=== PATIENT | male | born 1945 | race Caucasian/White ===

== ENCOUNTER 2017-12-29 10:25 | Outpatient (CLI) | payer MEDICARE | END 2017-12-29 10:26 | disposition home or self-care (01) | LOC: BICRAD 10:25 | PROVIDERS: ATTEND Internal Medicine Rheumatology | DX: M47.816 Spondylosis without myelopathy or radiculopathy, lumbar region (principal) | CPT/HCPCS: 72100 ==

== ENCOUNTER 2018-05-26 12:01 | Emergency (ER) | payer MEDICARE, BC ==
--- NOTE | 2018-05-26 13:59 | RAD ---
3 VIEW LEFT ANKLE SERIES: Date: 05/26/18 INDICATION: Fall with injury and pain. FINDINGS: There are two corticated metallic screws traversing the medial malleolus. Patient is osteopenic. Ther e is prominent arthropathy. Chronic appearing segmentation is present at the medial malleolus underly ing the above described screws. There is probable remote traumatic deformity of the distal fibula. Pr ominent vascular calcification and soft tissue calcification. IMPRESSION: 1. Chronic-appearing findings at the left ankle without definite acute process. 2. Segmentation of the medial malleolus is likely chronic given corticated margins. Correlate clinic ally. POS: [facility]
--- NOTE | 2018-05-26 14:01 | RAD ---
LEFT KNEE 4 VIEWS: Date: 05/26/18 HISTORY: 73-year-old male with history of left knee pain following an injury from a fall 1 week ago. FINDINGS: There is very severe bony demineralization. Very extensive arteriovascular calcification. There is a somewhat oblique fracture through the proximal fibula metadiaphysis. Slight foreshortening. IMPRESSION: Oblique fracture through the proximal fibula metadiaphysis with very slight foreshortening. Very alli re bony demineralization. Very severe arteriovascular calcification. POS: [facility]
--- NOTE | 2018-05-26 14:09 | RAD ---
LEFT FOOT 3 VIEWS: Date: 05/26/18 HISTORY: 73-year-old male with history of pain following a fall 1 week ago. FINDINGS: There is very severe bony demineralization. Two internal fixation screws stabilize the medial malleol us. Severe arteriovascular calcification. There is irregularity of the distal second and third metata rsals at the metatarsal head/neck junction. In addition, there is slight deformity of the proximal fi rst metatarsal and slight area of irregular trabecular change in the region of the base of the proxim al phalanx of the great toe. Because of the very severe bony demineralization, it is difficult to det ermine whether these are acute or old. No darren overt displaced acute fracture. IMPRESSION: Very markedly severe bony demineralization with some generalized soft tissue swelling, as well as mariaelena y severe arteriovascular calcification. Slight deformity of the distal second and third metatarsals, base of the medial aspect of the first proximal phalanx, and also the base of the first metatarsal. T hese areas of deformity are indeterminate as far as age. Clinical correlation in regard to any point tenderness at these regions is suggested. POS: [facility]
[2018-05-26] MEDS ORDERED: Acetaminophen 325 MG TAB ONE ×2 (14:17)
--- NOTE | 2018-05-26 14:35 | CT ---
BRAIN CT WITHOUT IV CONTRAST: Date: 05/26/18 HISTORY: 73-year-old male with history of head injury, falling 1 week ago. COMPARISON: 10/26/16. FINDINGS: Atrophy and chronic white matter ischemic changes with asymmetry of the size of the lateral ventricle s, with the right lateral ventricle being much larger than the left, but stable from prior study. Sin us mucosal changes The mastoids are clear. IMPRESSION: Atrophy and chronic white matter ischemic changes. Asymmetric lateral ventricles with the right later al ventricle being much more dilated than the left, but this is stable from prior exam. No mass or bl eed. Mild sinus mucosal disease. POS: [facility]
== END 2018-05-26 14:29 | disposition home or self-care (01) ==
LOC: SCSER 12:01
DX: S82.832A Other fracture of upper and lower end of left fibula, initial encounter for closed fracture (principal); S92.312A Displaced fracture of first metatarsal bone, left foot, initial encounter for closed fracture; I10 Essential (primary) hypertension; I48.91 Unspecified atrial fibrillation; E03.9 Hypothyroidism, unspecified; F17.200 Nicotine dependence, unspecified, uncomplicated; N40.0 Benign prostatic hyperplasia without lower urinary tract symptoms; W19.XXXA Unspecified fall, initial encounter
CPT/HCPCS: 29515; 70450

== ENCOUNTER 2019-01-21 14:52 | Inpatient (IN) | payer MEDICARE, BC ==
--- NOTE | 2019-01-21 15:30 | RAD ---
XR Ankle Lt 3 View STANDARD History: Pain Comparison: Radiograph 2018 Findings: There are lucencies around the 2 medial malleolar screws. Old distal fibular fracture. Late ral subluxation of the talus. All costochondral defect of the talar head. Bones are osteopenic. There is sheetlike ossification along the anterolateral musculature. Severe vascular calcifications. Impression: Severe degenerative changes. Evidence of prior soft tissue and muscle injury.
[2019-01-21] MEDS ORDERED: HYDROcodone/Acetaminophen 5/325 mg Tablet ONE (15:37)
--- NOTE | 2019-01-21 15:42 | RAD ---
RIGHT HUMERUS 2 VIEWS: HISTORY: Trauma with injury and pain. FINDINGS: There is a fracture involving the proximal humerus through the surgical neck with mild displacement. Degenerative changes at the glenohumeral joint. There is mild widening of the AC joint. IMPRESSION: Mild displaced fracture proximal right humerus. Question mild widening of the acromioclavicular join t. POS: [facility]
--- NOTE | 2019-01-21 15:43 | RAD ---
RIGHT SHOULDER 3 VIEWS: HISTORY: Trauma. FINDINGS: Minimally comminuted mildly displaced fracture involving the neck of the proximal right humerus. The re is widening of the AC joint measured at approximately 14 mm. Alignment is preserved. IMPRESSION: Fracture proximal humerus. Widening of the acromioclavicular joint. POS: [facility]
[2019-01-22] MEDS ORDERED: Acetaminophen 325 MG TAB PO PRN ×2 (00:08→09:38)
[2019-01-22] MEDS ORDERED: Ondansetron ODT 4 MG TAB SL PRN (00:08)
[2019-01-22] MEDS ORDERED: Ondansetron PF 4 MG/2 ML Vial IVP PRN (00:08)
[2019-01-22] MEDS ORDERED: Morphine 4 MG/ML VIAL SLOW IVP PRN (00:08)
[2019-01-22 00:50] VITALS: BMI 25.9
[2019-01-22] MEDS ORDERED: Bisacodyl 5 MG TAB PO PRN (09:38)
[2019-01-22] MEDS ORDERED: Non-Formulary Item 1 EACH (Ibandronate Sodium [Boniva] 150 MG) PO SCH (09:45)
[2019-01-22] MEDS ORDERED: Methotrexate Sodium 2.5 MG TAB PO SCH (09:45)
--- NOTE | 2019-01-22 10:30 | CT ---
CT BRAIN NONCONTRAST: DATE: 01/22/2019. TIME: 10:10 a.m. HISTORY: A 73-year-old male status post acute head trauma from fall yesterday. COMPARISON: 05/26/2018. FINDINGS: The entire right lateral ventricle is significantly more dilated than the normal-sized left lateral v entricle. This is unchanged dating back to 07/01/2012. 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 This is unchanged since 2011. There are moderate chronic ischemic white matter changes. No mass effect, extraaxial fluid collectio n, acute calvarial fracture, acute intraaxial hemorrhage, or acute extraaxial hemorrhage. No interva l change overall. IMPRESSION: 1. No acute intracranial findings. 2. Chronically asymmetrically dilated right lateral ventricle. 3. Age-related involutional changes and chronic ischemic white matter changes. ONEAL Vincent POS: [facility]
[2019-01-22] MEDS: Cyanocobalamin (Vitamin B-12) 1,000 MCG TAB PO SCH (11:20)
[2019-01-22] MEDS: Folic Acid 1 MG TAB PO SCH (11:21)
--- NOTE | 2019-01-22 16:09 | PDOC.PALCO ---
Palliative Care Consult - Consult Details Requesting Physician: Hospitalist Reason for Consult: goals of care - Pertinent HPI 73 year old male s/p fall 01/20 requiring transport to ER for evaluation. Fx to right humerus, admitted and awaiting results of head CT. Patient received in his room, awake alert and oriented. Right arm in sling, bruising to right shoulder and ear. Palliative Care RN also present for discussion in relation to patients goals of care, JACOB Colon arrived at end of visit. - Pertinent PMH History of RA, Cardiovascular disease including atrial fib, murmur, hypertension , liver disease. - Social History Smoking Status: Never smoker Smoking: no tobacco exposure Alcohol Use: occasional - Medications MAR Reviewed: Yes - Allergies Allergies/Adverse Reactions: Allergies Allergy/AdvReac Type Severity Reaction Status Date / Time No Known Allergies Allergy Verified 06/02/15 09:51 - Subjective S/P fall 01/20. Patient states increase in weakness secondary to decrease in leg strength. Increase in use of rolling walker. States pain is a 3/10 currently, managed with norco and no constipation as a side effect. - Objective Vital Signs: Vital Signs - Most Recent Temp Pulse Resp BP Pulse Ox 98.2 F 75 16 137/68 100 01/22/19 15:33 01/22/19 15:33 01/22/19 15:33 01/22/19 15:33 01/22/19 15:33 Palliative Performance Scale: 70 (Patient states "Isaiah" has POA, Palliative Care to follow up) - Physical Exam Constitutional: NAD Deviation from normal: Pallor HEENT: PERRLA Respiratory: no wheezing Deviation from normal: Appears to become slightly short of breath with conversation Cardiovascular: irregular Deviation from normal: murmur, radial pulses present, diminished pedal pulses Gastrointestinal: soft, non-tender, no distention, positive bowel sounds Deviation from normal: limited mobility right arm Psychiatric: normal affect, normal mood Skin: normal turgor Deviation from normal: cap refill > 3 sec lower extremities - Plan/Recommendations Plan: Patient currently a full code, in visiting with patient he states he does not "want everything done" and that he does not wish to be resuscitated. Patient states this is in his paper work as well as the documentation for his two friends to make decisions on his behalf. Patients friend Isaiah to locate information and fax or bring in to [facility] RN provided card with fax number. Patient agreeable to transfer to rehab then hopes to return to his primary residence. * Palliative Care Team to follow up to clarify DNR status 01/23 * Continue to manage pain to transition patient to rehab for mobility and strength * Obtain Advance directives [45] minutes spent on this encounter with >50% of the time in counseling and coordination of care.0 Thank you for this very appropriate consult.
[2019-01-22] MEDS: Alfuzosin 10 MG TABDR...ER PO SCH (16:15)
--- NOTE | 2019-01-22 16:29 | HP ---
PRIMARY CARE PROVIDER: Clinton Jane MD CHIEF COMPLAINT: Fall. HISTORY OF PRESENT ILLNESS: Mr. Bocanegra is a pleasant 73-year-old gentleman, who was seen at [facility] on January 22, 2019. He lives at [facility]. He uses a walker. He was sitting in his chair yesterday afternoon when there was a knock on the door. He tried to transfer from the chair to the walker. The walker got tipped and he fell on his right shoulder. He denies any loss of consciousness. He does report hitting the right side of his head on the carpet. He reports pain in his right shoulder following the fall. He describes it as dull, 3/10 with movement, nonradiating, worse with movement, not accompanied by chest pain, nausea, or vomiting. He presented to the emergency room. He was found to have a right humeral fracture. Attempts were made to discharge him to rehab. The patient was not accepted for rehab. He was referred to Hospitalist Service for admission. REVIEW OF SYSTEMS: All other systems reviewed and found to be negative. PAST MEDICAL HISTORY: Benign prostate hypertrophy; rheumatoid arthritis, followed by Dr. Faye; chronic atrial fibrillation, followed by Dr. Zavala; hypertension, and hypothyroidism. PAST SURGICAL HISTORY: Left ankle surgery, umbilical hernia repair, intraocular lens implantation. SOCIAL HISTORY: No history of tobacco use or recreational drug use. The patient reports occasional alcohol use. FAMILY HISTORY: Significant for deep vein thrombosis in his mother and multiple myeloma in his father. CODE STATUS: I discussed his code status. He is DNAR. ALLERGIES: NO KNOWN DRUG ALLERGIES. CURRENT MEDICATIONS: 1. Alfuzosin 10 mg every evening. 2. Apixaban 2.5 mg 2 times a day. 3. Vitamin D 2000 units daily. 4. Cholestyramine 4 g daily. 5. Vitamin B12 1000 mcg daily. 6. Folic acid 1 mg daily. 7. Boniva 150 mg every month. 8. Synthroid 100 mcg daily. 9. Methotrexate 20 mg every week. 10. Toprol-XL 50 mg daily. PHYSICAL EXAMINATION: GENERAL: On examination, Mr. Bocanegra is awake and alert, not in acute distress. VITAL SIGNS: Blood pressure is 136/68, pulse 90, respiratory rate 17, and oxygen saturation 97% on room air. He is afebrile. EYES: No scleral icterus, no conjunctival pallor. ENT: Moist mucosal membranes. No oropharyngeal erythema or exudates. NECK: Supple, nontender, trachea is midline. RESPIRATORY: Accessory muscles of breathing are not active. Chest wall movements are symmetric bilaterally. Lungs are clear to auscultation, without wheeze, rhonchi, or crepitations. CARDIOVASCULAR: S1 and S2 are heard, regular. Peripheral pulses palpable. No carotid bruit. No pericardial rub. ABDOMEN: Soft, nontender, bowel sounds are heard. MUSCULOSKELETAL: Right upper extremity in sling. Power is 5/5 in the other three extremities. SKIN: Bruise over the right pinna. Bruise over the right shoulder. LYMPHATIC: No cervical lymphadenopathy. PSYCHIATRIC: Normal mood, normal affect, the patient is oriented to person, place, and time. LABORATORY DATA: Mr. Bocanegra' labs and investigations were reviewed. X-ray of the right shoulder showed fracture of the proximal humerus and widening of the acromioclavicular joint. X-ray of the right ankle showed severe degenerative changes and evidence of prior soft tissue and muscle injury. X-ray of the right humerus showed mild displaced fracture of the proximal right humerus. Noncontrast CT scan of the brain did not show any intracranial bleed. He had chronically asymmetrically dilated right lateral ventricle. He has not had any blood work done at this point in time. ASSESSMENT AND PLAN: Mr. Bocanegra is a pleasant 73-year-old gentleman, who was seen at [facility] on January 22, 2019. His problem list includes: 1. Right humeral fracture: Mr. Bocanegra has right humeral fracture following a fall. He will be admitted to the hospital for further management. Orthopedic Surgery Service will be consulted. PT and OT services will also be consulted to determine if the patient can safely return to his current living arrangements. 2. Chronic atrial fibrillation: This appears to be stable, we will stop Eliquis for today to make sure he is not having any bleeding. We will restart Eliquis if hemoglobin is stable. 3. Benign prostate hypertrophy: Stable, continue alfuzosin. 4. Hypothyroidism: Continue Synthroid. 5. Rheumatoid arthritis: Continue methotrexate. Many thanks for allowing me to participate in your patient's care. Please feel free to contact me with any questions or concerns. LEVEL OF RISK: Moderate. LEVEL OF COMPLEXITY: Moderate. Job ID: [id number]
[2019-01-22 16:33] LABS: #Eosinphils 0.1 thou/uL (0.0-0.7); #Lymphocytes 0.7 thou/uL (1.20-3.40); #Monocytes 0.9 thou/uL (0.11-0.59); #Neutrophils 5.6 thou/uL (1.40-6.50); %Eosinophils 1.5 % (0.0-10.0); %Lymphocytes 8.9 % (21.0-51.0); %Monocytes 12.7 % (0.0-10.0); %Neutrophils 76.8 % (42.0-75.0); Hemoglobin 10.6 g/dL (14.0-18.0); Mean Corpuscular HGB CONC 32.6 g/dL (32.0-36.0); Mean Corpuscular Hemoglobin 33.4 pg (27.0-31.0); Mean Platelet Volume 8.4 fL (7.4-10.4); Platelet Count 146 thou/uL (130-400); RBC Distribution Width 19.2 % (11.5-14.5); Red Blood Cell (RBC) Count 3.18 mill/uL (4.70-6.10); White Blood Cell (WBC) Count 7.3 thou/uL (4.8-10.8)
--- NOTE | 2019-01-22 16:50 | CON ---
DATE OF CONSULTATION: 01/22/2019 CONSULTING PHYSICIAN: Eliceo Child MD. REASON FOR CONSULTATION: Right proximal humerus fracture, status post fall. HISTORY OF PRESENT ILLNESS: This is a 73-year-old male with a past medical history significant for rheumatoid arthritis, who presented to our emergency department yesterday after he fell while transferring from his chair to his walker. He states that he heard someone at the door and lost his balance, falling backwards onto his right shoulder. He also states that he did strike his head. Denied loss of consciousness. He has been admitted for further evaluation and followup CT of the head. He has been admitted to the Medicine Service at this time. Upon further workup, the patient was found to have a right proximal humerus fracture. We have been consulted for this reason. Currently at bedside, the patient states he has had a 20-year history of rheumatoid arthritis and is somewhat debilitated secondary to this. He mainly ambulates with an industrial-size rolling walker, which has a seat as well as a platform walker. He also utilizes a chair to get around. He states that he is right-hand dominant. He denies any numbness or tingling to the right upper extremity. Denies any other pain to any of his other extremities. PAST MEDICAL HISTORY: Significant for BPH, rheumatoid arthritis, alcohol liver disease, chronic atrial fibrillation, hypertension, and hypothyroidism. PAST SURGICAL HISTORY: Significant for left ankle surgery, umbilical hernia surgery, and intra-ocular lens. SOCIAL HISTORY: Denies any alcohol use. Denies illicit drug use. Currently, uses chewing tobacco. The patient states he lives at the [place] at [facility]. REVIEW OF SYSTEMS: A 10-point review of systems conducted and otherwise negative, except for stated above. PHYSICAL EXAMINATION: VITAL SIGNS: Show temperature 98.2, pulse is 75, respiratory rate of 16, O2 saturation of 100% on room air, and blood pressure of 137/68. GENERAL: The patient is awake and alert. He is in no apparent distress. He is pleasant and cooperative with exam today. HEENT: Head is normocephalic, atraumatic. NECK: Supple. Trachea midline. RESPIRATIONS: Breathing is nonlabored. EXTREMITIES: The right upper extremity was evaluated. It was noted to be in a sling. There is soft tissue swelling noted at the shoulder as well as some ecchymosis in the anterior shoulder region. This is globally tender to palpation. No significant tenderness to palpation over the clavicle or the AC joint. The patient is able to flex and extend slightly at the elbow while in the sling. He is also able to flex and extend at the wrist and move all digits. Distal neurovascular status is intact. Rheumatoid changes are noted to his hands. Remainder of extremities were evaluated, and no other acute injuries are noted. RADIOGRAPHIC DATA: Radiographic findings reviewed by myself as well as with Dr. Child show evidence of a proximal humerus transverse fracture. This appears to be a 2- or 3-part fracture. This was visualized on the shoulder films as well as the humerus films. This is minimally displaced and overall very well aligned. ASSESSMENT: Right proximal humerus fracture, status post fall. PLAN: At this time, the patient is being appropriately managed conservatively in a sling. No surgical intervention is warranted at this time. Sling for comfort and nonweightbearing preferably. The patient states he is going to rehab. We would like to see him in our office in 2 to 3 weeks for followup evaluation with repeat x-rays. This was discussed with the patient today. He verbalizes and understands the plan of care. Job ID: [id number]
[2019-01-22 16:51] LABS: Anion Gap 11 mmol/L (10-20); BUN (Urea Nitrogen) 17 mg/dL (8.4-25.7); Calc. Creatinine Clearance 79 mL/min (70-130); Calcium 9.2 mg/dL (7.8-10.44); Carbon Dioxide 29 mmol/L (23-31); Chloride 100 mmol/L (98-107); Estimated GFR-MDRD 79; Glucose 125 mg/dL (83-110); Sodium 136 mmol/L (136-145)
[2019-01-23] MEDS: Levothyroxine Sodium 100 MCG TAB PO SCH (05:00)
[2019-01-23 05:45] LABS: Anion Gap 10 mmol/L (10-20); BUN (Urea Nitrogen) 16 mg/dL (8.4-25.7); Calc. Creatinine Clearance 82 mL/min (70-130); Calcium 8.7 mg/dL (7.8-10.44); Carbon Dioxide 29 mmol/L (23-31); Chloride 102 mmol/L (98-107); Estimated GFR-MDRD 84; Glucose 101 mg/dL (83-110); Potassium 3.6 mmol/L (3.5-5.1); Sodium 137 mmol/L (136-145)
[2019-01-23 06:16] LABS: #Eosinphils 0.3 thou/uL (0.0-0.7); #Lymphocytes 0.8 thou/uL (1.20-3.40); #Monocytes 0.8 thou/uL (0.11-0.59); %Basophils 0.2 % (0.0-1.0); %Lymphocytes 13.9 % (21.0-51.0); %Monocytes 12.8 % (0.0-10.0); %Neutrophils 68.2 % (42.0-75.0); Hemoglobin 9.8 g/dL (14.0-18.0); Mean Corpuscular HGB CONC 32.1 g/dL (32.0-36.0); Mean Corpuscular Hemoglobin 33.1 pg (27.0-31.0); Mean Platelet Volume 8.3 fL (7.4-10.4); Platelet Count 112 thou/uL (130-400); Platelet Morphology Comment Appears Decreased; RBC Distribution Width 19.4 % (11.5-14.5); Red Blood Cell (RBC) Count 2.95 mill/uL (4.70-6.10); White Blood Cell (WBC) Count 5.9 thou/uL (4.8-10.8)
[2019-01-23] MEDS: Cyanocobalamin (Vitamin B-12) 1,000 MCG TAB PO SCH (09:32)
[2019-01-23] MEDS: Folic Acid 1 MG TAB PO SCH (09:32)
--- NOTE | 2019-01-23 13:24 | PDOC.PN ---
- Subjective Encounter Start Date: 01/23/19 Encounter Start Time: 10:15 Subjective: feels better - Objective Resuscitation Status - Order Detail: 01/22/19 09:38 Resuscitation Status Routine Resuscitation Status: DNAR: NO Resuscitation Discussed with: patient HARRY Reviewed: Yes Vital Signs & Weight: Vital Signs (12 hours) Temp Pulse Resp BP Pulse Ox 01/23/19 11:17 98.3 F 64 14 110/74 99 01/23/19 07:18 97.7 F 100 16 117/72 100 01/23/19 04:00 97.8 F 73 16 128/82 100 Weight Weight 176 lb I&O: 01/22/19 01/23/19 01/24/19 06:59 06:59 06:59 Intake Total 300 1180 Output Total 100 500 Balance 200 680 Result Diagrams: 01/23/19 05:13 01/23/19 05:13 Phys Exam - Physical Examination HEENT: PERRLA, moist MMs Neck: no JVD, supple Respiratory: no wheezing, no rales Cardiovascular: RRR, no significant murmur Gastrointestinal: soft, non-tender, positive bowel sounds Musculoskeletal: pulses present right shoulder has bruises with h/o fracture in sling Neurological: non-focal, moves all 4 limbs Psychiatric: normal affect, A&O x 3 Dx/Plan (1) Right humeral fracture Code(s): S42.301A - UNSP FRACTURE OF SHAFT OF HUMERUS, RIGHT ARM, INIT Status : Acute Qualifiers: Encounter type: subsequent encounter Humerus Location: surgical neck Fracture type: closed Fracture alignment: displaced Fracture healing: with routine healing (2) Rheumatoid arthritis Code(s): M06.9 - RHEUMATOID ARTHRITIS, UNSPECIFIED Status: Chronic Qualifiers: Rheumatoid arthritis location: multiple sites Rheumatoid factor presence: unspecified presence Qualified Code(s): M06.9 - Rheumatoid arthritis, unspecified (3) Afib Code(s): I48.91 - UNSPECIFIED ATRIAL FIBRILLATION Status: Chronic Qualifiers: Atrial fibrillation type: chronic Qualified Code(s): I48.2 - Chronic atrial fibrillation (4) HTN (hypertension) Code(s): I10 - ESSENTIAL (PRIMARY) HYPERTENSION Status: Chronic Qualifiers: Hypertension type: essential hypertension Qualified Code(s): I10 - Essential (primary) hypertension (5) Hypothyroidism Code(s): E03.9 - HYPOTHYROIDISM, UNSPECIFIED Status: Chronic Qualifiers: Hypothyroidism type: unspecified Qualified Code(s): E03.9 - Hypothyroidism , unspecified (6) Chronic anemia Code(s): D64.9 - ANEMIA, UNSPECIFIED Status: Chronic - Plan is on toprol xl, methotrexate weekly, synthroid, uroxatral -: norco/ultram/morphine prn pain -: awaiting rehab placement -: has disabling RA, is right handed, usually can amb with rw but now has righ -: -t humerus fracture limiting mobility. * . Review of Systems - Medications/Allergies Allergies/Adverse Reactions: Allergies Allergy/AdvReac Type Severity Reaction Status Date / Time No Known Allergies Allergy Verified 06/02/15 09:51 Medications: Current Medications Acetaminophen (Tylenol) 650 mg PO Q4H PRN PRN Reason: Headache/Fever/Mild Pain (1-3) Alfuzosin HCl (Uroxatral) 10 mg PO QPM-[facility] Last Admin: 01/22/19 16:15 Dose: 10 mg Bisacodyl (Dulcolax) 10 mg PO DAILYPRN PRN PRN Reason: Constipation Cholecalciferol (Vitamin D3) 2,000 units PO DAILY [facility] Last Admin: 01/23/19 09:32 Dose: 2,000 units Cyanocobalamin (Vitamin B-12) 1,000 mcg PO DAILY [facility] Last Admin: 01/23/19 09:32 Dose: 1,000 mcg Folic Acid (Folvite) 1 mg PO DAILY [facility] Last Admin: 01/23/19 09:32 Dose: 1 mg Levothyroxine Sodium (Synthroid) 100 mcg PO 0600 [facility] Last Admin: 01/23/19 05:00 Dose: 100 mcg Methotrexate Sodium (Methotrexate Sodium) 20 mg PO Q7D [facility] Metoprolol Succinate (Toprol Xl) 50 mg PO DAILY [facility] Last Admin: 01/23/19 09:33 Dose: 50 mg
[2019-01-23] MEDS: Alfuzosin 10 MG TABDR...ER PO SCH (17:55)
[2019-01-24] MEDS: Levothyroxine Sodium 100 MCG TAB PO SCH (05:44)
[2019-01-24] MEDS: Folic Acid 1 MG TAB PO SCH (09:45)
[2019-01-24] MEDS: Cyanocobalamin (Vitamin B-12) 1,000 MCG TAB PO SCH (09:45)
[2019-01-24] MEDS ORDERED: Methotrexate Sodium 2.5 MG TAB PO SCH (12:00)
[2019-01-24] MEDS ORDERED: Sodium Chloride 0.9% 500 ML IV SCH (12:00)
--- NOTE | 2019-01-24 13:46 | PDOC.PN ---
- Subjective Encounter Start Date: 01/24/19 Encounter Start Time: 10:20 Subjective: awake, no new complaints -: still has pain over right shoulder - Objective Resuscitation Status - Order Detail: 01/22/19 09:38 Resuscitation Status Routine Resuscitation Status: DNAR: NO Resuscitation Discussed with: patient HARRY Reviewed: Yes Vital Signs & Weight: Vital Signs (12 hours) Temp Pulse Pulse Resp BP BP Pulse Ox 01/24/19 11:59 98.5 F 69 18 98/53 L 99 01/24/19 08:27 68 98/61 01/24/19 07:15 98.1 F 58 L 18 139/82 100 01/24/19 04:40 98.3 F 65 16 118/64 98 Weight Weight 176 lb I&O: 01/23/19 01/24/19 01/25/19 06:59 06:59 06:59 Intake Total 1180 1380 Output Total 500 900 Balance 680 480 Result Diagrams: 01/23/19 05:13 01/23/19 05:13 Phys Exam - Physical Examination HEENT: PERRLA, moist MMs Neck: no JVD, supple Respiratory: no wheezing, no rales Cardiovascular: RRR, no significant murmur Gastrointestinal: soft, non-tender, positive bowel sounds Musculoskeletal: no edema, pulses present right shoulder area mild echymosis Neurological: non-focal, moves all 4 limbs Psychiatric: normal affect, A&O x 3 Dx/Plan (1) Right humeral fracture Code(s): S42.301A - UNSP FRACTURE OF SHAFT OF HUMERUS, RIGHT ARM, INIT Status : Acute Qualifiers: Encounter type: subsequent encounter Humerus Location: surgical neck Fracture type: closed Fracture alignment: displaced Fracture healing: with routine healing (2) Rheumatoid arthritis Code(s): M06.9 - RHEUMATOID ARTHRITIS, UNSPECIFIED Status: Chronic Qualifiers: Rheumatoid arthritis location: multiple sites Rheumatoid factor presence: unspecified presence Qualified Code(s): M06.9 - Rheumatoid arthritis, unspecified (3) Afib Code(s): I48.91 - UNSPECIFIED ATRIAL FIBRILLATION Status: Chronic Qualifiers: Atrial fibrillation type: chronic Qualified Code(s): I48.2 - Chronic atrial fibrillation (4) HTN (hypertension) Code(s): I10 - ESSENTIAL (PRIMARY) HYPERTENSION Status: Chronic Qualifiers: Hypertension type: essential hypertension Qualified Code(s): I10 - Essential (primary) hypertension (5) Hypothyroidism Code(s): E03.9 - HYPOTHYROIDISM, UNSPECIFIED Status: Chronic Qualifiers: Hypothyroidism type: unspecified Qualified Code(s): E03.9 - Hypothyroidism , unspecified (6) Chronic anemia Code(s): D64.9 - ANEMIA, UNSPECIFIED Status: Chronic - Plan awaiting placement, may dc anytime if accepted -: if rehab is full may try swing bed -: continue toprol, methotrexate, synthroid -: has low bp around 11 am, 500ml NS bolus -: hemostable otherwise for discharge * . Review of Systems - Medications/Allergies Allergies/Adverse Reactions: Allergies Allergy/AdvReac Type Severity Reaction Status Date / Time No Known Allergies Allergy Verified 06/02/15 09:51 Medications: Current Medications Acetaminophen (Tylenol) 650 mg PO Q4H PRN PRN Reason: Headache/Fever/Mild Pain (1-3) Alfuzosin HCl (Uroxatral) 10 mg PO QPM-[facility] Last Admin: 01/23/19 17:55 Dose: 10 mg Bisacodyl (Dulcolax) 10 mg PO DAILYPRN PRN PRN Reason: Constipation Cholecalciferol (Vitamin D3) 2,000 units PO DAILY [facility] Last Admin: 01/24/19 09:44 Dose: 2,000 units Cyanocobalamin (Vitamin B-12) 1,000 mcg PO DAILY [facility] Last Admin: 01/24/19 09:45 Dose: 1,000 mcg Folic Acid (Folvite) 1 mg PO DAILY [facility] Last Admin: 01/24/19 09:45 Dose: 1 mg Levothyroxine Sodium (Synthroid) 100 mcg PO 0600 [facility] Last Admin: 01/24/19 05:44 Dose: 100 mcg Methotrexate Sodium (Methotrexate Sodium) 20 mg PO Q7D [facility] Last Admin: 01/24/19 12:54 Dose: 20 mg Metoprolol Succinate (Toprol Xl) 50 mg PO DAILY [facility] Last Admin: 01/24/19 13:15 Dose: Not Given
[2019-01-24 15:22] VITALS: BP 122/73; TEMP 97.9
[2019-01-24] MEDS: Alfuzosin 10 MG TABDR...ER PO SCH (18:17)
--- NOTE | 2019-01-25 11:29 | DIS ---
DATE OF ADMISSION: 01/21/2019 DATE OF DISCHARGE: 01/24/2019 DISCHARGE DISPOSITION: Inpatient rehab. PRIMARY DISCHARGE DIAGNOSES: Right humeral fracture in a sling, history of rheumatoid arthritis, severe deconditioning, chronic atrial fibrillation, hypertension, hypothyroidism, chronic anemia. PROCEDURES DONE DURING HOSPITALIZATION: Left ankle three view x-ray done showed severe degenerative disease, evidence of prior soft tissue and muscle injury. There was sheet-like ossifications along the anterolateral musculatures. Severe vascular calcifications were seen incidentally. There was also a costochondral defect in the talar head. Bones are osteopenic. There were lucencies around two medial malleolar screws. Old distal fibular fracture was seen. Right shoulder three view plain x-ray done showed proximal fracture of the humerus, widening of the acromioclavicular joint. The widening was 14 mm. Alignment was preserved. Minimally comminuted, mildly displaced fracture of the neck of proximal right humerus. CT brain showed no acute intracranial findings. There is chronic asymmetry and dilatation of right lateral ventricle. Age-related involutional changes and chronic ischemic white matter changes were noted. H and H 10 and 30, platelet count 112, MCV 103, white count of 5.9, BUN 16, creatinine 0.8. INPATIENT CONSULT: Dr. Child for Orthopedic Surgery. DISCHARGE MEDICATIONS: 1. Uroxatral 10 mg p.o. q.p.m. 2. Eliquis 2.5 mg twice daily. 3. Vitamin D3 2000 units p.o. daily. 4. Vitamin B12 1000 mcg p.o. daily. 5. Folic acid 1 mg p.o. daily. 6. Boniva 150 mg p.o. once a month. 7. Synthroid 100 mcg p.o. daily. 8. Methotrexate 20 mg p.o. once a week. 9. Lopressor 25 mg twice daily. ALLERGIES: NO KNOWN DRUG ALLERGIES. DISCHARGE PLAN: The patient is being discharged to inpatient rehab to follow up with primary care physician in [address] Child as advised. BRIEF COURSE DURING HOSPITALIZATION: The patient initially got admitted on the with complaints of fall. He was sitting in a chair and tried to transfer from his chair to the walker and was trying to answer the door when he tripped and fell and hit his right shoulder. The patient was found to have had mildly comminuted surgical neck right humerus fracture. The patient is also right-handed person and he has had disabling chronic rheumatoid arthritis as well. In view of this, the patient was admitted to medical floor. He has initially denied rehab admission from ER. He has had a repeat rehab evaluation done and they have accepted him. He has had consultation with Dr. Child for the humerus fracture. He has been placed in a sling and he is nonweightbearing on the right upper extremity. They will follow up with him in 2 to 3 weeks with repeat x-rays to see for healing. The patient has had deconditioning and is being accepted to inpatient rehab now. A total of 35 minutes was spent on discharge plan. Please see a [id number] documentation for the day of discharge on [facility]. Job ID: [id number]
== END 2019-01-24 18:55 | DRG 563 ==
LOC: ERS 14:52 → SURG A 21:12
PROVIDERS: ADMIT Hospitalist; ATTEND Hospitalist
DX: S42.201A Unspecified fracture of upper end of right humerus, initial encounter for closed fracture (principal); Z66 Do not resuscitate; Y92.019 Unspecified place in single-family (private) house as the place of occurrence of the external cause; W01.0XXA Fall on same level from slipping, tripping and stumbling without subsequent striking against object, initial encounter; M06.9 Rheumatoid arthritis, unspecified; K70.9 Alcoholic liver disease, unspecified; I48.2 Chronic atrial fibrillation; I10 Essential (primary) hypertension; E03.9 Hypothyroidism, unspecified; N40.0 Benign prostatic hyperplasia without lower urinary tract symptoms; D64.9 Anemia, unspecified; Z72.0 Tobacco use; Z79.899 Other long term (current) drug therapy
CPT/HCPCS: 36415; 70450; 80048; 85025; J8610